=== PATIENT | female | born 1995 | race Caucasian/White ===

== ENCOUNTER 2019-11-11 04:34 | Emergency (ER) | payer BC ==
[2019-11-11] MEDS ORDERED: Acetaminophen 500 MG Tab PO ONE (05:15)
[2019-11-11] MEDS ORDERED: Prochlorperazine 10 MG/2 ML SDV IM ONE (05:16)
[2019-11-11] MEDS ORDERED: Ibuprofen 400 MG Tab PO ONE (05:16)
--- NOTE | 2019-11-11 05:28 | EDM.PDOC ---
ED HPI GENERAL MEDICAL PROBLEM - General Chief Complaint: Headache Stated Complaint: HEADACHE, FEVER AND VOMITTING Time Seen by Provider: 11/11/19 04:35 Source of Information: Reports: Patient History Limitations: Reports: No Limitations - History of Present Illness INITIAL COMMENTS - FREE TEXT/NARRATIVE: This patient is a very pleasant 24-year-old female with a past medical history of asthma presented to the emergency department the headache. She reports a 2 to 3-hour history of a right-sided headache in the retro-orbital region along with photophobia and phonophobia. Described as "pulsing" and constant, nonradiating. No prior history of a headache of this character and intensity. She denies any fever, neck stiffness, head trauma, visual disturbance, facial numbness or weakness, extremity numbness or weakness, gait instability, or anticoagulant or antiplatelet medication usage. No self treatment prior to arrival. Right Headache Pain Score (Numeric/FACES): 7 - Related Data Allergies Allergy/AdvReac Type Severity Reaction Status Date / Time amoxicillin Allergy Rash Verified 11/11/19 04:50 cefdinir [From Omnicef] Allergy Rash Verified 11/11/19 04:50 sulfamethazine Allergy vomit Verified 11/11/19 04:51 Home Meds: Home Meds Albuterol Sulfate [Albuterol Sulfate Hfa] 2 mg IH ASDIRECTED 11/11/19 [History] Ondansetron [Zofran] 4 mg PO Q8H PRN #15 tab 11/11/19 [Rx] norgestimate-ethinyl estradioL [Tri-Sprintec Tablet] 1 mg PO 11/11/19 [History] Past Medical History HEENT History: Reports: None Cardiovascular History: Reports: None Respiratory History: Reports: None, Asthma Gastrointestinal History: Reports: None 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 History: Reports: None 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 Musculoskeletal History: Reports: None Neurological History: Reports: None Psychiatric History: Reports: None Endocrine/Metabolic History: Reports: None Hematologic History: Reports: None Immunologic History: Reports: None Oncologic (Cancer) History: Reports: None Dermatologic History: Reports: None - Infectious Disease History Infectious Disease History: Reports: None - Past Surgical History Head Surgeries/Procedures: Reports: None HEENT Surgical History: Reports: None Cardiovascular Surgical History: Reports: None Respiratory Surgical History: Reports: None GI Surgical History: Reports: None Female Surgical History: Reports: None Neurological Surgical History: Reports: None Musculoskeletal Surgical History: Reports: None Social & Family History - Family History Family Medical History: Noncontributory - Tobacco Use Smoking Status *Q: Never Smoker Second Hand Smoke Exposure: No - Caffeine Use Caffeine Use: Reports: None - Recreational Drug Use Recreational Drug Use: No ED ROS GENERAL - Review of Systems Review Of Systems: Comprehensive ROS is negative, except as noted in HPI. Constitutional: Denies: Fever HEENT: Denies: Eye Pain, Hearing Loss, Vision Change Respiratory: Denies: Shortness of Breath Cardiovascular: Denies: Chest Pain, Edema Endocrine: Reports: No Symptoms GI/Abdominal: Reports: Nausea, Vomiting. Denies: Abdominal Pain : Reports: No Symptoms Musculoskeletal: Denies: Neck Pain, Back Pain Skin: Reports: No Symptoms Neurological: Reports: Headache. Denies: Dizziness, Numbness, Paresthesia, Seizure, Syncope, Tingling, Trouble Speaking, Difficulty Walking, Weakness, Change in Speech, Gait Disturbance Psychiatric: Reports: No Symptoms Hematologic/Lymphatic: Reports: No Symptoms - Physical Exam Exam: See Below General Appearance: Alert, No Apparent Distress Ears: Normal External Exam Nose: Normal Inspection, Normal Mucosa. No: Nasal Drainage Throat/Mouth: Normal Inspection, Normal Oropharynx, Normal Voice Head Exam: Atraumatic, Normocephalic, Other (Negative temporal artery tenderness ) Neck: Normal Inspection, Supple, Non-Tender, Full Range of Motion. No: Limited Range of Motion Respiratory/Chest: No Respiratory Distress, No Accessory Muscle Use Cardiovascular: Normal Peripheral Pulses, No Edema GI/Abdominal: Soft, Non-Tender, No Distention Neuro Exam (Abbreviated): Alert, Oriented, CN II-XII Intact, Normal Cognition, Normal Gait, No Motor/Sensory Deficits, Other (Awake, alert, and oriented x3. Cranial nerves II through XII intact. No facial droop or dysarthria. No temporal artery tenderness. Supple neck with normal range of motion. No pronator drift. Normal atsqee-zlzs-gukfka and ebfx-oc-vnpt. No dysdiadochokinesia. 5/5 strength in all extremities. Sensation intact to light touch x4. Negative Romberg. Normal gait. Normal visual fernandez, no field cuts. Able to sit, stand, and ambulate without assistance.) Extremities: Normal Inspection Psychiatric: Normal Affect, Normal Mood Skin Exam: Warm, Dry Course - Vital Signs Text/Narrative:: 23-year-old female presenting with a headache. On arrival she appears hemodynamically stable, afebrile, looks nontoxic. Diagnosis included but was not limited to migraine, tension headache, benign headache, meningoencephalitis , subarachnoid hemorrhage, intracranial hemorrhage, sub-dural hemorrhage, CVA, TIA, malignancy, sinusitis, etc. Given report of a new headache in an unusual pattern, we pursued CT imaging of the brain, which was unremarkable. Patient has no meningeal signs, neurologic examination is nonfocal and without abnormality. She is well-appearing and looks nontoxic. We administered acetaminophen along with ibuprofen and intramuscular prochlorperazine with good relief of her headache. Presentation seems to be consistent with a primary migraine. She is well-appearing and stable to discharge home with outpatient primary care follow-up. Recommended shkx-ocp-nunkhtz extra strength acetaminophen along with ibuprofen and prescribed a short course of Zofran. Strict ED return precautions were provided and the patient was discharged in good condition with all questions answered prior to departure. Last Recorded V/S: Last Vital Signs Temp 36.1 C 11/11/19 05:58 Pulse 87 11/11/19 05:58 Resp 14 11/11/19 05:58 BP 111/67 11/11/19 05:58 Pulse Ox 100 11/11/19 05:58 - Orders/Labs/Meds Meds: Medications Discontinued Medications Generic Name Dose Route Start Last Admin Trade Name Kleverq PRN Reason Stop Dose Admin Acetaminophen 1,000 mg 11/11/19 05:15 11/11/19 05:53 Tylenol Extra Strength PO 11/11/19 05:16 1,000 mg ONETIME ONE Administration Ibuprofen 400 mg 11/11/19 05:16 11/11/19 05:53 Motrin PO 11/11/19 05:17 400 mg ONETIME ONE Administration Prochlorperazine Edisylate 5 mg 11/11/19 05:16 11/11/19 05:53 Compazine IM 11/11/19 05:17 5 mg ONETIME ONE Administration - Re-Assessments/Exams Free Text/Narrative Re-Assessment/Exam: 11/11/19 06:[address] negative. Pain significantly improved. Patient is well-appearing, looks nontoxic, resting comfortably. Departure - Departure Time of Disposition: 06:22 Disposition: Home, Self-Care 01 Condition: Good Clinical Impression: Migraine - Discharge Information *PRESCRIPTION DRUG MONITORING PROGRAM REVIEWED*: Not Applicable *COPY OF PRESCRIPTION DRUG MONITORING REPORT IN PATIENT BATSHEVA: No Instructions: Migraine Headache, [id number] Referrals: Hortensia Castillo NP [Primary Care Provider] - 1 Week Forms: ED Department Discharge Additional Instructions: You can take [id number] acetaminophen or ibuprofen as directed for your headache. I recommend following up with your primary medical clinic in the next 1 to 2 weeks. Return to the emergency department immediately if your symptoms worsen or if you have any other concerns. The following information is given to patients seen in the emergency department who are being discharged to home. This information is to outline your options for follow-up care. We provide all patients seen in our emergency department with a follow-up referral. The need for follow-up, as well as the timing and circumstances, are variable depending upon the specifics of your emergency department visit. If you don't have a primary care physician on staff, we will provide you with a referral. We always advise you to contact your personal physician following an emergency department visit to inform them of the circumstance of the visit and for follow-up with them and/or the need for any referrals to a consulting specialist. The emergency department will also refer you to a specialist when appropriate. This referral assures that you have the opportunity for follow-up care with a specialist. All of these measure are taken in an effort to provide you with optimal care, which includes your follow-up. Under all circumstances we always encourage you to contact your private physician who remains a resource for coordinating your care. When calling for follow-up care, please make the office aware that this follow-up is from your recent emergency room visit. If for any reason you are refused follow-up, please contact the [facility] Emergency Department at and asked to speak to the emergency department charge nurse. Sepsis Event Note - Evaluation Sepsis Screening Result: No Definite Risk - Focused Exam Vital Signs: Vital Signs Temp Pulse Resp BP Pulse Ox 11/11/19 05:58 36.1 C 87 14 111/67 100 11/11/19 04:49 36.5 C 90 18 123/64 100 Date Exam was Performed: 11/11/19 Time Exam was Performed: 06:18
--- NOTE | 2019-11-11 06:16 | CT ---
INDICATION: Headache, dizziness and nausea and vomiting COMPARISON: November 10, 2012 TECHNIQUE: CT examination of the head was performed as axial sections without intravenous contrast. Images were obtained from the vertex of the skull through the skull base. Please note that all CT scans at this facility use dose modulation, iterative reconstruction, and/or weight-based dosing when appropriate to reduce radiation dose to as low as reasonably achievable. FINDINGS: The brain shows no sign of mass lesion, mass effect, hemorrhage, or edema. The ventricles and sulci are normal in appearance for the patient`s age. The visualized portions of the orbits are normal in appearance. The osseous structures are normal in their appearance with no sign of abnormality in the skull base or calvarium. IMPRESSION: Normal unenhanced head CT. Please note that all CT scans at this facility use dose modulation, iterative reconstruction, and/or weight-based dosing when appropriate to reduce radiation dose to as low as reasonably achievable. Dictated by Gage Pena MD @ Nov 11 2019 6:13AM Signed by Dr. Gage Pena @ Nov 11 2019 6:15AM
[2019-11-11 06:38] VITALS: BP 102/63; PULSE 85
== END 2019-11-11 06:35 | disposition home or self-care (01) ==
LOC: MW.ED 04:34
DX: G43.909 Migraine, unspecified, not intractable, without status migrainosus (principal); J45.909 Unspecified asthma, uncomplicated; Z88.1 Allergy status to other antibiotic agents; Z88.2 Allergy status to sulfonamides
CPT/HCPCS: 70450; 96372; 99284; A9270; J0780; 99283

== ENCOUNTER 2020-07-09 07:24 | Emergency (ER) | payer BC ==
--- NOTE | 2020-07-09 07:34 | EDM.PDOC ---
ED HPI GENERAL MEDICAL PROBLEM - General Stated Complaint: SHORTNESS OF BREATH AND CHEST PAIN Time Seen by Provider: 07/09/20 07:27 Source of Information: Reports: Patient History Limitations: Reports: No Limitations - History of Present Illness INITIAL COMMENTS - FREE TEXT/NARRATIVE: 24-year-old female with history of anxiety, PTSD, asthma presents with chest pain and shortness of breath. Symptoms started at 630 this morning, described as midsternal chest tightness sensation, exacerbated with taking a deep breath, associated with cough and shortness of breath and congestion. She denies fever, chills, nausea, vomiting, body aches and generalized malaise. She is on control. ROS: A 10-point review of systems, other than pertinent positives and negatives as stated per HPI, is otherwise negative Past medical history: No additional pertinent history Past Surgical history: No additional pertinent history Social history: No additional pertinent history Family history: No additional pertinent history PHYSICAL EXAM General: AOx4, GCS = 15, No distress HEENT: dry mucous membrane Neck: supple, no meningismus, no Kernig or Brudzinski Cardiac: S1S2 tachycardia Respiratory: CTAB, no crackles or rales, no wheezing Abdomen: Soft, nontender, no rebound or guarding, nondistended, no pulsatile mass. Back: nontender Musculoskeletal: NVI distally, no deformity Neuro: No focal deficits chest Pain Score (Numeric/FACES): 8 - Related Data Allergies Allergy/AdvReac Type Severity Reaction Status Date / Time amoxicillin Allergy Rash Verified 07/09/20 07:37 cefdinir [From Omnicef] Allergy Rash Verified 07/09/20 07:37 sulfamethazine Allergy vomit Verified 07/09/20 07:37 Home Meds: Home Meds Albuterol Sulfate [Albuterol Sulfate Hfa] 2 mg IH ASDIRECTED 11/11/19 [History] Ondansetron [Zofran] 4 mg PO Q8H PRN #15 tab 11/11/19 [Rx] norgestimate-ethinyl estradioL [Tri-Sprintec Tablet] 1 mg PO 11/11/19 [History] Sertraline HCl [Zoloft] 50 mg PO DAILY 07/09/20 [History] hydrOXYzine pamoate [Hydroxyzine Pamoate] 25 mg PO BID PRN 07/09/20 [History] Past Medical History HEENT History: Reports: None Cardiovascular History: Reports: None Respiratory History: Reports: None, Asthma Gastrointestinal History: Reports: None 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 History: 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 Musculoskeletal History: Reports: None Neurological History: Reports: None Psychiatric History: Reports: None Endocrine/Metabolic History: Reports: None Hematologic History: Reports: None Immunologic History: Reports: None Oncologic (Cancer) History: Reports: None Dermatologic History: Reports: None - Infectious Disease History Infectious Disease History: Reports: None - Past Surgical History Head Surgeries/Procedures: Reports: None HEENT Surgical History: Reports: None Cardiovascular Surgical History: Reports: None Respiratory Surgical History: Reports: None GI Surgical History: Reports: None Female Surgical History: Reports: None Neurological Surgical History: Reports: None Musculoskeletal Surgical History: Reports: None Social & Family History - Family History Family Medical History: No Pertinent Family History - Caffeine Use Caffeine Use: Reports: None ED ROS GENERAL - Review of Systems Review Of Systems: See Below (see dictation) ED EXAM, GENERAL - Physical Exam Exam: See Below (see dictation) #1 Interpretation EKG Interpretation Comments: 116 bpm, NSR, normal QRS interval, no STEMI. EKG and rhythm strip interpreted by me at 0743 Course - Vital Signs Last Recorded V/S: Last Vital Signs Temp 97.8 F 07/09/20 07:37 Pulse 106 H 07/09/20 07:37 Resp BP 137/71 07/09/20 07:37 Pulse Ox 98 07/09/20 07:37 - Orders/Labs/Meds Orders: Active Orders 24 hr Category Date Time Status Cardiac Monitoring [RC] . DIRECTED Care 07/09/20 07:53 Active EKG 12 Lead [EKG Documentation Completion] [RC] STAT Care 07/09/20 07:28 Active Pulse Oximetry [RC] ASDIRECTED Care 07/09/20 07:53 Active CORONAVIRUS COVID-19 CARLOS [MOLEC] Stat Lab 07/09/20 08:23 Received Sodium Chloride 0.9% [Saline Flush] Med 07/09/20 07:53 Active 10 ml FLUSH ASDIRECTED PRN Sodium Chloride 0.9% [Saline Flush] Med 07/09/20 07:53 Active 2.5 ml FLUSH ASDIRECTED PRN Saline Lock Insert [OM.PC] Stat Oth 07/09/20 07:53 Ordered Medication Orders Sodium Chloride (Saline Flush) 10 ml FLUSH ASDIRECTED PRN PRN Reason: Keep Vein Open Last Admin: 07/09/20 08:20 Dose: 10 ml Documented by: KIZZY Sodium Chloride (Saline Flush) 2.5 ml FLUSH ASDIRECTED PRN PRN Reason: Keep Vein Open Last Admin: 07/09/20 08:26 Dose: 2.5 ml Documented by: KIZZY Labs: Laboratory Tests 07/09/20 07/09/20 07/09/20 Range/Units 08:18 08:18 08:18 WBC 7.25 (4.0-11.0) K/uL RBC 4.95 (4.30-5.90) M/uL Hgb 14.5 (12.0-16.0) g/dL Hct 43.8 (36.0-46.0) % MCV 88.5 (80.0-98.0) fL MCH 29.3 (27.0-32.0) pg MCHC 33.1 (31.0-37.0) g/dL RDW Std Deviation 39.7 (28.0-62.0) fl RDW Coeff of Fatmata 12 (11.0-15.0) % Plt Count 236 (150-400) K/uL MPV 10.40 (7.40-12.00) fL Neut % (Auto) 58.8 (48.0-80.0) % Lymph % (Auto) 31.3 (16.0-40.0) % Baca % (Auto) 6.5 (0.0-15.0) % Eos % (Auto) 3.0 (0.0-7.0) % Baso % (Auto) 0.4 (0.0-1.5) % Neut # (Auto) 4.3 (1.4-5.7) K/uL Lymph # (Auto) 2.3 (0.6-2.4) K/uL Baca # (Auto) 0.5 (0.0-0.8) K/uL Eos # (Auto) 0.2 (0.0-0.7) K/uL Baso # (Auto) 0.0 (0.0-0.1) K/uL Nucleated RBC % 0.0 /100WBC Nucleated RBCs # 0 K/uL D-Dimer, Quantitative 0.30 (0.0-0.50) mg/L FEU Sodium 140 (136-145) mmol/L Potassium 3.6 (3.5-5.1) mmol/L Chloride 105 (98-107) mmol/L Carbon Dioxide 25.0 (21.0-32.0) mmol/L BUN 9 (7.0-18.0) mg/dL Creatinine 0.9 (0.6-1.0) mg/dL Est Cr Clr Drug Dosing 76.89 mL/min Estimated GFR (MDRD) > 60.0 ml/min Glucose 116 H (74-106) mg/dL Calcium 9.4 (8.5-10.1) mg/dL Total Bilirubin 0.2 (0.2-1.0) mg/dL AST 11 L (15-37) IU/L ALT 21 (14-63) IU/L Alkaline Phosphatase 88 (46-116) U/L Troponin I < 0.050 (0.000-0.056) ng/mL Total Protein 7.9 (6.4-8.2) g/dL Albumin 3.9 (3.4-5.0) g/dL Globulin 4.0 (2.6-4.0) g/dL Albumin/Globulin Ratio 1.0 (0.9-1.6) Meds: Medications Generic Name Dose Route Start Last Admin Trade Name Freq PRN Reason Stop Dose Admin Sodium Chloride 10 ml 07/09/20 07:53 07/09/20 08:20 Saline Flush FLUSH 10 ml ASDIRECTED PRN Administration Keep Vein Open Sodium Chloride 2.5 ml 07/09/20 07:53 07/09/20 08:26 Saline Flush FLUSH 2.5 ml ASDIRECTED PRN Administration Keep Vein Open Discontinued Medications Generic Name Dose Route Start Last Admin Trade Name Freq PRN Reason Stop Dose Admin Lactated Ringer's 1,000 mls @ 999 mls/hr 07/09/20 07:53 07/09/20 08:19 Ringers, Lactated IV 07/09/20 08:53 999 mls/hr .BOLUS ONE Administration Lorazepam 1 mg 07/09/20 08:57 Ativan PO 07/09/20 08:58 ONETIME ONE - Re-Assessments/Exams Free Text/Narrative Re-Assessment/Exam: 07/09/20 07:57 Order 1 L IV fluids and Ativan 1mg IV 07/09/20 09:52 After PO ativan, she feels better and is currently stable for discharge. I performed a repeat exam and did not appreciate new abnormal findings. Patient exhibits normal vital signs and has a normal gait on road test. I advised the patient to return to the ER for reevaluation if symptoms worsened, including fever, worsening pain, or any other worrisome symptoms. I instructed the patient to follow up with their PCP within 2-3 days. MEDICAL DECISION MAKING: I reviewed the patients past medical records, lab and radiographic findings. I discussed the case with the patient. My differential includes but is not limited to: anxiety, ACS, pneumonia, COVID, PE, pneumothorax, chest wall pain, pulmonary edema/CHF, aortic dissection, pericarditis, intra-abdominal process. Her clinical history is consistent with panic attack, she felt like her chest was tight. She was a little tremulous on exam, symptoms improved with p.o. Ativan, consistent with anxiety. She was tested negative for Covid. Given the EKG and clinical history, I do not suspect pericarditis. There is no evidence of pneumothorax or infiltrate on CXR. Aortic dissection was considered, however the presenting symptoms were uncharacteristic of aortic dissection. Chest X-ray shows no evidence of mediastinal widening and there are strong, equal and symmetric pulses. Given the current presentation, I do not suspect aortic dissection. The patients history, chest X-ray, and exam do not suggest pulmonary edema/congestive heart failure. Pulmonary embolism was considered but felt unlikely witha negative dimer. Intra-abdominal pathology felt unlikely given benign/non tender abdominal exam. Acute coronary syndrome was considered but there are negative troponin, no acute ischemic EKG changes, and the patient has a low HEART score. Based on this, I feel that there is low risk for short-term major adverse cardiac event. Departure - Departure Time of Disposition: 09:56 Disposition: Home, Self-Care 01 Condition: Good Clinical Impression: Chest discomfort, Anxiety - Discharge Information Instructions: Nonspecific Chest Pain, Adult, Managing Anxiety, Adult Referrals: Hortensia Castillo NP [Primary Care Provider] - 3 Days Forms: ED Department Discharge Additional Instructions: The need for follow-up, as well as the timing and circumstances, are variable depending upon the specifics of your emergency department visit. If you don't have a primary care physician on staff, we will provide you with a referral. We always advise you to contact your personal physician following an emergency department visit to inform them of the circumstance of the visit and for follow-up with them and/or the need for any referrals to a consulting specialist. The emergency department will also refer you to a specialist when appropriate. This referral assures that you have the opportunity for follow-up care with a specialist. All of these measure are taken in an effort to provide you with optimal care, which includes your follow-up. Under all circumstances we always encourage you to contact your private physician who remains a resource for coordinating your care. When calling for follow-up care, please make the office aware that this follow-up is from your recent emergency room visit. If for any reason you are refused follow-up, please contact the [facility] Emergency Department at and asked to speak to the emergency department charge nurse. If you do not have a primary care doctor, please follow up with the clinics below within 3-5 days. [facility] - Primary Care [address] [place] [id number] [facility] [address] [place] [id number] Sepsis Event Note (ED) - Focused Exam Vital Signs: Vital Signs Temp Pulse BP Pulse Ox 07/09/20 07:37 97.8 F 106 H 137/71 98 - My Orders Last 24 Hours: My Active Orders 07/09/20 07:28 EKG 12 Lead [EKG Documentation Completion] [RC] STAT 07/09/20 07:53 Cardiac Monitoring [RC] . DIRECTED Pulse Oximetry [RC] ASDIRECTED Sodium Chloride 0.9% [Saline Flush] 10 ml FLUSH ASDIRECTED PRN Sodium Chloride 0.9% [Saline Flush] 2.5 ml FLUSH ASDIRECTED PRN Saline Lock Insert [OM.PC] Stat 07/09/20 08:23 CORONAVIRUS COVID-19 CARLOS [MOLEC] Stat - Assessment/Plan Last 24 Hours: My Active Orders 07/09/20 07:28 EKG 12 Lead [EKG Documentation Completion] [RC] STAT 07/09/20 07:53 Cardiac Monitoring [RC] . DIRECTED Pulse Oximetry [RC] ASDIRECTED Sodium Chloride 0.9% [Saline Flush] 10 ml FLUSH ASDIRECTED PRN Sodium Chloride 0.9% [Saline Flush] 2.5 ml FLUSH ASDIRECTED PRN Saline Lock Insert [OM.PC] Stat 07/09/20 08:23 CORONAVIRUS COVID-19 CARLOS [MOLEC] Stat
[2020-07-09] MEDS ORDERED: Sodium Chloride 0.9% 2.5 ML Syringe FLUSH PRN (07:53)
[2020-07-09] MEDS ORDERED: Sodium Chloride 0.9% 10 ML Syringe FLUSH PRN (07:53)
[2020-07-09] MEDS ORDERED: Lactated Ringers 1,000 ML IV ONE (07:53)
[2020-07-09 08:49] LABS: BLOOD UREA NITROGEN,BUN 9 mg/dL (7.0-18.0); CHLORIDE,CL 105 mmol/L (98-107); GLUCOSE RANDOM 116 mg/dL (74-106); POTASSIUM,K 3.6 mmol/L (3.5-5.1); SODIUM,NA 140 mmol/L (136-145)
[2020-07-09] MEDS ORDERED: LORazepam 1 MG Tab PO ONE (08:57)
--- NOTE | 2020-07-09 08:57 | CR ---
HISTORY: Chest pain. TECHNIQUE: One view of the chest. COMPARISON: No prior. FINDINGS: There is no focal lung infiltrate or pulmonary edema. No pneumothorax or pleural effusion. Cardiac size within normal limits. Mild scoliosis. IMPRESSION: 1. No acute lung infiltrate or pulmonary edema. 2. Mild scoliosis. Dictated by Nazario Minor MD @ 07/09/2020 8:55:18 AM Dictated by: Nazario Minor MD @ 07/09/2020 08:55:24 (Electronically Signed)
[2020-07-09 11:36] VITALS: BP 125/72; PULSE 75
== END 2020-07-09 09:38 | disposition home or self-care (01) ==
LOC: MW.ED 07:24
DX: F41.9 Anxiety disorder, unspecified (principal); J45.909 Unspecified asthma, uncomplicated; Z88.0 Allergy status to penicillin; Z88.1 Allergy status to other antibiotic agents; Z88.2 Allergy status to sulfonamides; Z79.899 Other long term (current) drug therapy; Z20.822 Contact with and (suspected) exposure to COVID-19
CPT/HCPCS: 36415; 71045; 80053; 84484; 85025; 85379; 87635; 93005; 99285; A9270; J7120; U0002

== ENCOUNTER 2020-07-09 19:54 | Emergency (ER) | payer BC ==
[2020-07-09] MEDS ORDERED: Albuterol HFA 18 Gm Inhaler INH ONE (20:47)
[2020-07-09] MEDS ORDERED: predniSONE 20 MG Tab PO ONE (20:47)
--- NOTE | 2020-07-09 20:52 | EDM.PDOC ---
ED HPI GENERAL MEDICAL PROBLEM - General Chief Complaint: Chest Pain Stated Complaint: DIFFICULTY BREATHING Time Seen by Provider: 07/09/20 20:09 - History of Present Illness INITIAL COMMENTS - FREE TEXT/NARRATIVE: History of present illness: [] She woke up at 630 this morning with chest pain and shortness of breath. She came to the emergency department. Her exam was unremarkable and she was anxious. My partner gave her anxiolytic medicine and felt like she improved. She said she is continued to be somewhat short of breath. Her boyfriend noted that when she was able to sleep today after the medicine her breathing seemed normal. Patient has no fever chills. She has a mild cough. She has pleuritic type chest pain in anterior center of her chest. Continues tonight. The patient is on control pills but does not smoke and has negative personal and family history of thromboembolic disease. The patient has had no recent immobilization Surgery or long trip. She has no significant history of premature coronary vessel disease in her history of her family. Review of systems: As per history of present illness and below otherwise all systems reviewed and negative. Past medical history: As per history of present illness and as reviewed below otherwise noncontributory. Surgical history: As per history of present illness and as reviewed below otherwise noncontributory. Social history: No reported history of drug or alcohol abuse. Family history: As per history of present illness and as reviewed below otherwise noncontributory. Physical exam: Constitutional - well developed, well-nourished and in no acute distress HEENT - normocephalic, no evidence of trauma - external nose and mouth normal - no mass in neck and no JVD - mucosae moist EYES - full EOM, PERRL, no icterus - no evidence of inflammation, injection, or drainage Respiratory - no respiratory distress, equal bilateral expansion, lungs coarse rhonchi and wheezes in the bases. Cardiovascular - Regular Rhythm with S1 and S2 appreciated and no murmur, gallop or rub. GI - abdomen soft without distension or organomegaly - normal bowel sounds - no guard or rebound Musculoskeletal no gross deformity of long bones or joints - no tenderness, swelling or edema Neurologic - Alert and oriented times four - CN II-XII grossly intact - motor sensory and coordination symmetrically normal Psychiatric - appropriate mood and affect with normal thought content Hematologic - No petechiae or purpura - mucosa appropriate color and sclera not pale - normal nail bed color and refill Integument - no rash or evidence of trauma - normal turgor Diagnostics: [] Therapeutics: [] Impression: [] Plan: [] Definitive disposition and diagnosis as appropriate pending reevaluation and review of above. middle chest Pain Score (Numeric/FACES): 7 - Related Data Allergies Allergy/AdvReac Type Severity Reaction Status Date / Time amoxicillin Allergy Rash Verified 07/09/20 07:37 cefdinir [From Omnicef] Allergy Rash Verified 07/09/20 07:37 sulfamethazine Allergy vomit Verified 07/09/20 07:37 Home Meds: Home Meds Albuterol Sulfate [Albuterol Sulfate Hfa] 2 mg IH ASDIRECTED 11/11/19 [History] Ondansetron [Zofran] 4 mg PO Q8H PRN #15 tab 11/11/19 [Rx] norgestimate-ethinyl estradioL [Tri-Sprintec Tablet] 1 mg PO 11/11/19 [History] Sertraline HCl [Zoloft] 50 mg PO DAILY 07/09/20 [History] hydrOXYzine pamoate [Hydroxyzine Pamoate] 25 mg PO BID PRN 07/09/20 [History] predniSONE [Prednisone] 40 mg PO DAILY #6 tablet 07/09/20 [Rx] Past Medical History HEENT History: Reports: None Cardiovascular History: Reports: None Respiratory History: Reports: Asthma Gastrointestinal History: Reports: None 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 History: Reports: None [employer] History: Reports: None Musculoskeletal History: Reports: None Neurological History: Reports: None Psychiatric History: Reports: None Endocrine/Metabolic History: Reports: None Hematologic History: Reports: None Immunologic History: Reports: None Oncologic (Cancer) History: Reports: None Dermatologic History: Reports: None - Infectious Disease History Infectious Disease History: Reports: None - Past Surgical History Head Surgeries/Procedures: Reports: None HEENT Surgical History: Reports: Tonsillectomy Cardiovascular Surgical History: Reports: None Respiratory Surgical History: Reports: None GI Surgical History: Reports: None Female Surgical History: Reports: None Neurological Surgical History: Reports: None Musculoskeletal Surgical History: Reports: None Social & Family History - Family History Family Medical History: No Pertinent Family History - Caffeine Use Caffeine Use: Reports: None - Recreational Drug Use Recreational Drug Use: No ED ROS GENERAL - Review of Systems Review Of Systems: Comprehensive ROS is negative, except as noted in HPI. ED EXAM, GENERAL - Physical Exam Exam: See Below Free Text/Narrative:: My physical exam is in the HPI #1 Interpretation EKG Interpretation Comments: EKG shows a rhythm with a heart rate 94 and an axis of 58. SD interval is 143 and QT is 486. There is a borderline prolonged QT interval with some ST and T abnormalities. 08/01/1941 this morning the T wave inversions in the precordium and V3,4,5 and 6 have reverted to more normal-appearing T waves. Impression this could represent vasospasm. Course - Vital Signs Text/Narrative:: Coughed and vomited once and was much better afterwards. I feel like she may have clear to mucous plug. Because EKG has been more normal now than it was this morning there is a possibility she has intermittent vasospasm. Troponin remains negative. Patient feels better and is discharged in satisfactory condition but will have her make 1 appointment with cardiology to look at the 2 EKGs. Last Recorded V/S: Last Vital Signs Temp 37.5 C 07/09/20 20:10 Pulse 92 07/09/20 21:33 Resp 16 07/09/20 21:33 BP 129/69 07/09/20 21:33 Pulse Ox 100 07/09/20 21:33 - Orders/Labs/Meds Orders: Active Orders 24 hr Category Date Time Status EKG 12 Lead [EKG Documentation Completion] [RC] STAT Care 07/09/20 20:01 Active RT Post Treatment Assessment [RC] Click to Edit Care 07/09/20 20:47 Active RT Post Treatment Assessment [RC] Click to Edit Care 07/09/20 21:04 Active RT Pre-Treatment Assessment [RC] Click to Edit Care 07/09/20 20:47 Active RT Pre-Treatment Assessment [RC] Click to Edit Care 07/09/20 21:04 Active Labs: Laboratory Tests 07/09/20 Range/Units 21:15 Troponin I < 0.050 (0.000-0.056) ng/mL Meds: Medications Discontinued Medications Generic Name Dose Route Start Last Admin Trade Name Freq PRN Reason Stop Dose Admin Albuterol 8 gm 07/09/20 20:47 07/09/20 21:05 Ventolin Hfa INH 07/09/20 20:48 Not Given STAT ONE Albuterol Confirm 07/09/20 20:59 07/09/20 21:04 Ventolin Hfa Administered 07/09/20 21:00 Not Given Dose 8 gm INH .STK-MED ONE Albuterol 8 gm 07/09/20 21:02 07/09/20 21:10 Ventolin Hfa INH 07/09/20 21:03 2 inhalation NOW STA Administration Prednisone 40 mg 07/09/20 20:47 07/09/20 21:10 Prednisone PO 07/09/20 20:48 40 mg ONETIME ONE Administration Departure - Departure Time of Disposition: 21:52 Disposition: Home, Self-Care 01 Condition: Good Clinical Impression: Acute bronchospasm - Discharge Information Prescriptions: predniSONE [Prednisone] 40 mg PO DAILY #6 tablet Instructions: Bronchospasm, Adult Referrals: Hortensia Castillo RAG ROOM SUPERVISOR [Primary Care Provider] - Forms: ED Department Discharge Additional Instructions: [facility] - cardiology [address] [place] [address] Her EKG is normal tonight and there was a little bit of T wave change since this morning you should probably have an appoint with cardiology and left in them review your history and look at the 2 EKGs to make sure they do not think any more testing is necessary. [facility] - Primary Care [address] [place] [id number] [address] [address] The following information is given to patients seen in the emergency department who are being discharged to home. This information is to outline your options for follow-up care. We provide all patients seen in our emergency department with a follow-up referral. The need for follow-up, as well as the timing and circumstances, are variable depending upon the specifics of your emergency department visit. If you don't have a primary care physician on staff, we will provide you with a referral. We always advise you to contact your personal physician following an emergency department visit to inform them of the circumstance of the visit and for follow-up with them and/or the need for any referrals to a consulting specialist. The emergency department will also refer you to a specialist when appropriate. This referral assures that you have the opportunity for follow-up care with a specialist. All of these measure are taken in an effort to provide you with optimal care, which includes your follow-up. Under all circumstances we always encourage you to contact your private physician who remains a resource for coordinating your care. When calling for follow-up care, please make the office aware that this follow-up is from your recent emergency room visit. If for any reason you are refused follow-up, please contact the [facility] Emergency Department at and asked to speak to the emergency department charge nurse. Sepsis Event Note (ED) - Evaluation Sepsis Screening Result: No Definite Risk - Focused Exam Vital Signs: Vital Signs Temp Pulse Resp BP Pulse Ox 07/09/20 21:33 92 16 129/69 100 07/09/20 20:10 37.5 C 93 20 125/77 98 - My Orders Last 24 Hours: My Active Orders 07/09/20 20:01 EKG 12 Lead [EKG Documentation Completion] [RC] STAT 07/09/20 20:47 RT Post Treatment Assessment [RC] Click to Edit RT Pre-Treatment Assessment [RC] Click to Edit 07/09/20 21:04 RT Post Treatment Assessment [RC] Click to Edit RT Pre-Treatment Assessment [RC] Click to Edit - Assessment/Plan Last 24 Hours: My Active Orders 07/09/20 20:01 EKG 12 Lead [EKG Documentation Completion] [RC] STAT 07/09/20 20:47 RT Post Treatment Assessment [RC] Click to Edit RT Pre-Treatment Assessment [RC] Click to Edit 07/09/20 21:04 RT Post Treatment Assessment [RC] Click to Edit RT Pre-Treatment Assessment [RC] Click to Edit
[2020-07-09] MEDS ORDERED: Albuterol 8 GM Inhaler INH ONE (20:59)
[2020-07-09] MEDS ORDERED: Albuterol HFA 18 Gm Inhaler INH STA (21:02)
[2020-07-09 21:36] VITALS: BP 129/69; PULSE 92
== END 2020-07-09 22:00 | disposition home or self-care (01) ==
LOC: MW.ED 19:54
DX: J98.01 Acute bronchospasm (principal); Z88.2 Allergy status to sulfonamides; Z88.0 Allergy status to penicillin; Z88.1 Allergy status to other antibiotic agents
CPT/HCPCS: 36415; 84484; 93005; 99285; A9270; J3535-GY

== ENCOUNTER 2020-09-14 05:25 | Emergency (ER) | payer BC ==
[2020-09-14] MEDS ORDERED: diphenhydrAMINE 50 MG/ML SDV IVPUSH ONE (05:55)
[2020-09-14] MEDS ORDERED: Ketorolac 15 MG/ML SDV IVPUSH STA (05:55)
[2020-09-14] MEDS ORDERED: Prochlorperazine 5 MG in Sodium Chloride 0.9% 50 ML IV ONE (05:55)
[2020-09-14] MEDS ORDERED: Sodium Chloride 0.9% 1,000 ML IV ONE (05:56)
[2020-09-14] MEDS ORDERED: Sodium Chloride 0.9% 2.5 ML Syringe FLUSH PRN (05:56)
[2020-09-14] MEDS ORDERED: Sodium Chloride 0.9% 10 ML Syringe FLUSH PRN (05:56)
[2020-09-14] MEDS ORDERED: Prochlorperazine 10 MG/2 ML SDV ONE (05:59)
[2020-09-14] MEDS ORDERED: Prochlorperazine 10 MG/2 ML SDV IVPUSH ONE (05:59)
--- NOTE | 2020-09-14 06:01 | EDM.PDOC ---
ED HPI GENERAL MEDICAL PROBLEM - General Chief Complaint: Headache Stated Complaint: MIGRAINE, LIGHT-HEADED, EARS RINGING Time Seen by Provider: 09/14/20 05:49 - History of Present Illness INITIAL COMMENTS - FREE TEXT/NARRATIVE: HISTORY AND PHYSICAL: History of present illness: This is a 25-year-old female with past medical history as well as a family history significant for migraine headaches in the past, who presents ER today complaining of a headache that started approximate 1 day ago. Patient denies any recent fevers, shakes, chills, diarrhea, dysuria, frequency, urgency, chest pain, shortness of breath. Patient does complain of nausea and vomiting associated with it. Patient reports had one episode of emesis today. Patient denies any nuchal rigidity or photophobia. Patient reports she does have occasional episodes of blurred vision with her headache. Patient denies any weakness to her upper or lower extremities. Patient denies any slurring her speech. Patient denies any recent head trauma or injury. Patient reports that today's headache is similar to headaches that she is had in the past. Patient reports that she has been prescribed butalbital in the past by her primary care physician for her migraine headaches. Review of systems: As per history of present illness and below otherwise all systems reviewed and negative. Past medical history: As per history of present illness and as reviewed below otherwise noncontributory. Surgical history: As per history of present illness and as reviewed below otherwise noncontributory. Social history: No reported history of drug or alcohol abuse. Family history: As per history of present illness and as reviewed below otherwise noncontributory. Physical exam: This patient was seen and evaluated during the 2019 SARS-CoV-2 novel coronavirus pandemic period. Community viral transmission is ongoing at time of this encounter and the emergency department is operating under pandemic response procedures. Constitutional: Patient is oriented to person, place, and time. Appears well- developed and well-nourished. No distress. HEENT: Moist mucous membranes Head: Normocephalic and atraumatic Eyes: Right eye exhibits no discharge. Left eye exhibits no discharge. No scleral icterus Neck: Normal range of motion. No tracheal deviation present. Neck supple, no nuchal rigidity, no photophobia, no Kernig's sign or Brudzinski sign, patient does not present with signs or symptoms of be consistent with meningitis. Neuro: A&Ox3. Cranial nerves II-XII grossly intact, 5/5 strength to bilateral upper and lower extremities, sensation intact to bilateral upper and lower extremities, no nystagmus, PERRLA, EOMI, normal speech, proprioception intact to bilateral lower extremities, normal finger to nose test, gait normal Cardiovascular: Normal rate and regular rhythm. Pulmonary: Effort normal, no respiratory distress. Abdominal: No distention Musculoskeletal: Normal range of motion Neurologic: Alert and oriented to person, place and time. Skin: [place], warm and dry. Psychiatric: Normal mood and affect. Behavior is normal. Judgment and thought content normal. Nursing note and vital signs have been reviewed Therapeutics: Compazine 5 mg IV Benadryl 50 mg IV Toradol 15 mg IV NSS x1 L Assessment and plan: This is a 25-year-old female who presents ER today complaining of a headache consistent with her prior migraine headaches. Patient does not appear to be toxic upon presentation of the ED but does appear to be uncomfortable. Patient sitting quietly in the room with the lights on with her boyfriend. In reviewing patient's records, patient appears of had a CT scan within the last year. CT scan of the time was normal. Patient's neurological exam is unremarkable in the ED. Patient will be given Compazine, Benadryl, Toradol and NSS and will be reevaluated. 6:41 AM: Patient resting comfortably in bed. Patient reports headache is resolved and feels much improved. Patient be discharged home. Reassessment at the time of disposition demonstrates that the patient is in no acute distress. The patient has remained stable throughout the entire ED visit and is without objective evidence for acute process requiring urgent intervention or hospitalization. The patient is stable for discharge, counseling is provided as documented above, discussed symptomatic treatment and specific conditions for return. I have spoken with the patient/caregiver and discussed todays findings, in addition to providing specific details for the plan of care. Questions are answered and there is agreement with the plan. Definitive disposition and diagnosis as appropriate pending reevaluation and review of above. headache Pain Score (Numeric/FACES): 7 - Related Data Allergies Allergy/AdvReac Type Severity Reaction Status Date / Time amoxicillin Allergy Rash Verified 09/14/20 05:41 cefdinir [From Omnicef] Allergy Rash Verified 09/14/20 05:41 sulfamethazine Allergy Rash Verified 09/14/20 05:41 tramadol Allergy Rash Verified 09/14/20 05:41 Home Meds: Home Meds Albuterol Sulfate [Albuterol Sulfate Hfa] 2 mg IH ASDIRECTED 11/11/19 [History] norgestimate-ethinyl estradioL [Tri-Sprintec Tablet] 1 mg PO DAILY 11/11/19 [History] Sertraline HCl [Zoloft] 50 mg PO DAILY 07/09/20 [History] hydrOXYzine pamoate [Hydroxyzine Pamoate] 25 mg PO BID PRN 07/09/20 [History] Butalb/Acetaminophen/Caffeine [Idzgvn-Gvgkomyj-Ajoe 50-325-40] 1 each PO Q6HR PRN 09/14/20 [History] Fluticasone Propionate [Flovent HFA] 1 puff INH ASDIRECTED PRN 09/14/20 [History] Past Medical History HEENT History: Reports: None Cardiovascular History: Reports: None Respiratory History: Reports: Asthma Gastrointestinal History: Reports: None 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 History: Reports: None [employer]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 Musculoskeletal History: Reports: Other (See Below) Other Musculoskeletal History: Scoliosis Neurological History: Reports: None Psychiatric History: Reports: Anxiety, Depression Endocrine/Metabolic History: Reports: None Insulin Pump Model and District Associate Judge: None Hematologic History: Reports: None Immunologic History: Reports: None Oncologic (Cancer) History: Reports: None Dermatologic History: Reports: None - Infectious Disease History Infectious Disease History: Reports: None - Past Surgical History Head Surgeries/Procedures: Reports: None HEENT Surgical History: Reports: Tonsillectomy Cardiovascular Surgical History: Reports: None Respiratory Surgical History: Reports: None GI Surgical History: Reports: None Female Surgical History: Reports: None Neurological Surgical History: Reports: None Musculoskeletal Surgical History: Reports: None Social & Family History - Family History Family Medical History: No Pertinent Family History - Caffeine Use Caffeine Use: Reports: None ED ROS GENERAL - Review of Systems Review Of Systems: See Below ED EXAM, GENERAL - Physical Exam Exam: See Below Course - Vital Signs Last Recorded V/S: Last Vital Signs Temp 97.2 F 09/14/20 05:40 Pulse 89 09/14/20 05:40 Resp 18 09/14/20 05:40 BP 100/57 L 09/14/20 05:40 Pulse Ox 97 09/14/20 05:40 - Orders/Labs/Meds Orders: Active Orders 24 hr Category Date Time Status Sodium Chloride 0.9% [Normal Saline] 1,000 ml Med 09/14/20 05:56 Active IV .Bolus Sodium Chloride 0.9% [Saline Flush] Med 09/14/20 05:56 Active 10 ml FLUSH ASDIRECTED PRN Sodium Chloride 0.9% [Saline Flush] Med 09/14/20 05:56 Active 2.5 ml FLUSH ASDIRECTED PRN Saline Lock Insert [OM.PC] Stat Oth 09/14/20 05:56 Ordered Medication Orders Sodium Chloride (Normal Saline) 1,000 mls @ 999 mls/hr IV .Bolus ONE Stop: 09/14/20 06:56 Last Admin: 09/14/20 06:02 Dose: 999 mls/hr Documented by: RAJINDER Sodium Chloride (Sodium Chloride 0.9% 10 Ml Syringe) 10 ml FLUSH ASDIRECTED PRN PRN Reason: Keep Vein Open Last Admin: 09/14/20 06:02 Dose: 10 ml Documented by: RAJINDER Sodium Chloride (Sodium Chloride 0.9% 2.5 Ml Syringe) 2.5 ml FLUSH ASDIRECTED PRN PRN Reason: Keep Vein Open Last Admin: 09/14/20 06:02 Dose: 2.5 ml Documented by: RAJINDER Meds: Medications Generic Name Dose Route Start Last Admin Trade Name Freq PRN Reason Stop Dose Admin Sodium Chloride 1,000 mls @ 999 mls/hr 09/14/20 05:56 09/14/20 06:02 Normal Saline IV 09/14/20 06:56 999 mls/hr .Bolus ONE Administration Sodium Chloride 10 ml 09/14/20 05:56 09/14/20 06:02 Sodium Chloride 0.9% 10 Ml Syringe FLUSH 10 ml ASDIRECTED PRN Administration Keep Vein Open Sodium Chloride 2.5 ml 09/14/20 05:56 09/14/20 06:02 Sodium Chloride 0.9% 2.5 Ml Syringe FLUSH 2.5 ml ASDIRECTED PRN Administration Keep Vein Open Discontinued Medications Generic Name Dose Route Start Last Admin Trade Name Freq PRN Reason Stop Dose Admin Diphenhydramine HCl 50 mg 09/14/20 05:55 09/14/20 06:03 Diphenhydramine 50 Mg/Ml Sdv IVPUSH 09/14/20 05:56 50 mg ONETIME ONE Administration Prochlorperazine Edisylate 5 51 mls @ 150 mls/hr 09/14/20 05:55 09/14/20 06:00 mg/ Sodium Chloride IV 09/14/20 06:15 Not Given ONETIME ONE Ketorolac Tromethamine 15 mg 09/14/20 05:55 09/14/20 06:03 Ketorolac 15 Mg/Ml Sdv IVPUSH 09/14/20 05:56 15 mg ONETIME STA Administration Prochlorperazine Edisylate 5 mg 09/14/20 05:59 09/14/20 06:03 Prochlorperazine 10 Mg/2 Ml Sdv IVPUSH 09/14/20 06:00 5 mg ONETIME ONE Administration Prochlorperazine Edisylate Confirm 09/14/20 05:59 09/14/20 06:04 Prochlorperazine 10 Mg/2 Ml Sdv Administered 09/14/20 06:00 Not Given Dose 10 mg .ROUTE .STK-MED ONE Departure - Departure Time of Disposition: 06:42 Disposition: Home, Self-Care 01 Condition: Good Clinical Impression: Migraine - Discharge Information Instructions: Migraine Headache, Xrla-[id number], General Headache Without Cause, Hxpe-py-[id number] Referrals: Hortensia Castillo LOAN PROCESSING SUPERVISOR [Primary Care Provider] - Forms: ED Department Discharge Additional Instructions: You were seen and evaluated in the ER today secondary to what appears to be a likely migraine headache. You have been treated with Compazine, Benadryl, Toradol in the ED. Please go home and get plenty of rest and drink plenty of liquids over the next 1 to 2 days. Please make an appointment to see your family doctor in the next 1 to 2 days for reevaluation. The following information is given to patients seen in the emergency department who are being discharged to home. This information is to outline your options for follow-up care. We provide all patients seen in our emergency department with a follow-up referral. The need for follow-up, as well as the timing and circumstances, are variable depending upon the specifics of your emergency department visit. If you don't have a primary care physician on staff, we will provide you with a referral. We always advise you to contact your personal physician following an emergency department visit to inform them of the circumstance of the visit and for follow-up with them and/or the need for any referrals to a consulting specialist. The emergency department will also refer you to a specialist when appropriate. This referral assures that you have the opportunity for follow-up care with a specialist. All of these measure are taken in an effort to provide you with optimal care, which includes your follow-up. Under all circumstances we always encourage you to contact your private physician who remains a resource for coordinating your care. When calling for follow-up care, please make the office aware that this follow-up is from your recent emergency room visit. If for any reason you are refused follow-up, please contact the [facility] Emergency Department at and asked to speak to the emergency department charge nurse. [facility] - Primary Care [address] [place] [id number] [facility] [address] [place] [id number] Sepsis Event Note (ED) - Evaluation Sepsis Screening Result: No Definite Risk - Focused Exam Vital Signs: Vital Signs Temp Pulse Resp BP Pulse Ox 09/14/20 05:40 97.2 F 89 18 100/57 L 97 - My Orders Last 24 Hours: My Active Orders 09/14/20 05:56 Sodium Chloride 0.9% [Normal Saline] 1,000 ml IV .Bolus Sodium Chloride 0.9% [Saline Flush] 10 ml FLUSH ASDIRECTED PRN Sodium Chloride 0.9% [Saline Flush] 2.5 ml FLUSH ASDIRECTED PRN Saline Lock Insert [OM.PC] Stat - Assessment/Plan Last 24 Hours: My Active Orders 09/14/20 05:56 Sodium Chloride 0.9% [Normal Saline] 1,000 ml IV .Bolus Sodium Chloride 0.9% [Saline Flush] 10 ml FLUSH ASDIRECTED PRN Sodium Chloride 0.9% [Saline Flush] 2.5 ml FLUSH ASDIRECTED PRN Saline Lock Insert [OM.PC] Stat
[2020-09-14 06:45] VITALS: BP 104/56; PULSE 60
== END 2020-09-14 06:48 | disposition home or self-care (01) ==
LOC: MW.ED 05:25
DX: G43.909 Migraine, unspecified, not intractable, without status migrainosus (principal); J45.909 Unspecified asthma, uncomplicated; Z88.0 Allergy status to penicillin; Z88.2 Allergy status to sulfonamides; Z88.8 Allergy status to other drugs, medicaments and biological substances; Z79.899 Other long term (current) drug therapy
CPT/HCPCS: 96374; 96375; 99283; J0780; J1200; J1885; J7030

== ENCOUNTER 2021-07-11 20:20 | Emergency (ER) | payer BC ==
[2021-07-11] MEDS ORDERED: Ketorolac 60 MG/2 ML SDV IM ONE (21:14)
[2021-07-11] MEDS ORDERED: Ondansetron 4 MG Tab.DIS PO ONE (21:14)
[2021-07-11] MEDS ORDERED: Ketorolac 30 MG/ML SDV ONE (21:17)
[2021-07-11] MEDS ORDERED: Ketorolac 30 MG/ML SDV IM ONE (21:23)
[2021-07-11] MEDS ORDERED: Orphenadrine 60 MG/2 ML Inj IM ONE (21:52)
[2021-07-11 22:15] VITALS: BP 98/62; PULSE 65
== END 2021-07-11 22:15 | disposition home or self-care (01) ==
LOC: MW.ED 20:20
DX: M54.50 Low back pain, unspecified (principal); Z88.0 Allergy status to penicillin; Z88.1 Allergy status to other antibiotic agents; Z88.5 Allergy status to narcotic agent
CPT/HCPCS: 96372; 99283; A9270; J1885; J2360

== ENCOUNTER 2022-09-16 16:46 | Observation (INO) | payer BC | END 2022-09-17 11:50 | disposition home or self-care (01) | LOC: MW.OBCHECK 16:46 → MW.OB 16:47 → MW.OBCHECK 22:05 | PROVIDERS: ADMIT Obstetrics & Gynecology; ATTEND Obstetrics & Gynecology | DX: O47.1 False labor at or after 37 completed weeks of gestation (principal); O99.513 Diseases of the respiratory system complicating pregnancy, third trimester; J45.909 Unspecified asthma, uncomplicated; O99.353 Diseases of the nervous system complicating pregnancy, third trimester; G43.909 Migraine, unspecified, not intractable, without status migrainosus; O99.343 Other mental disorders complicating pregnancy, third trimester; F41.9 Anxiety disorder, unspecified; F32.A Depression, unspecified; Z3A.37 37 weeks gestation of pregnancy; Z88.1 Allergy status to other antibiotic agents; Z88.2 Allergy status to sulfonamides; Z88.5 Allergy status to narcotic agent; Z79.899 Other long term (current) drug therapy | CPT/HCPCS: 59025; 76815; 84112; 87480; 87510; 87660; G0378 ==

== ENCOUNTER 2022-09-28 13:26 | Inpatient (IN) | payer BC ==
[2022-09-28] MEDS ORDERED: Sodium Chloride 0.9% 2.5 ML Syringe FLUSH PRN (14:25)
[2022-09-28] MEDS ORDERED: Water For Irrigation,Sterile 1,000 ML Container IRR PRN (14:25)
[2022-09-28] MEDS ORDERED: Sodium Chloride 0.9% 10 ML Syringe FLUSH PRN (14:25)
[2022-09-28] MEDS ORDERED: Tranexamic Acid 1,000 MG in Sodium Chloride 0.9% 100 ML IV PRN (14:25)
[2022-09-28] MEDS ORDERED: Methylergonovine 0.2 MG/1 ML Amp IM PRN (14:25)
[2022-09-28] MEDS ORDERED: Sodium Chloride 0.9% 20 ML SDV IV PRN (14:25)
[2022-09-28] MEDS ORDERED: Butorphanol 1 MG/ML SDV IVPUSH PRN (14:25)
[2022-09-28] MEDS ORDERED: Carboprost Tromethamine 250 MCG/1 ML Amp IM PRN (14:25)
[2022-09-28] MEDS ORDERED: Misoprostol 200 MCG Tab PO PRN (14:25)
[2022-09-28] MEDS ORDERED: Lidocaine 1% 50 ML MDV INJECT PRN (14:25)
[2022-09-28] MEDS ORDERED: Ondansetron 4 MG/2 ML SDV IVPUSH PRN (14:25)
[2022-09-28] MEDS ORDERED: Oxytocin/0.9 % Sodium Chloride 30 UNIT/500 ML BAG IV SCH ×2 (14:30→17:30)
[2022-09-28] MEDS: Lactated Ringers 1,000 ML IV SCH ×2 (17:37→20:58)
[2022-09-28] MEDS ORDERED: Phenylephrine HCl 0.5 MG/5 ML AMP IVPUSH PRN (18:10)
[2022-09-28] MEDS ORDERED: ePHEDrine 50 MG/ML SDV IVPUSH PRN ×2 (18:10)
[2022-09-28] MEDS ORDERED: Ropivacaine HCl/PF 400 MG in Premix Bag 1 BAG EPIDUR SCH (18:15)
[2022-09-28] MEDS ORDERED: Dexmedetomidine 200 MCG/2 ML SDV ONE (19:28)
[2022-09-29] MEDS ORDERED: Ibuprofen 400 MG Tab PO PRN (00:48)
[2022-09-29] MEDS ORDERED: Benzocaine/Menthol 20%-0.5% Spray 78 GM Cannister TOP PRN (00:48)
[2022-09-29] MEDS ORDERED: Docusate Sodium 100 MG Cap PO PRN (00:48)
[2022-09-29] MEDS ORDERED: oxyCODONE 5 MG Tab PO PRN (00:48)
[2022-09-29] MEDS ORDERED: Bisacodyl 10 MG Supp RECTAL PRN (00:48)
[2022-09-29] MEDS ORDERED: Lanolin 100% Cream 7 GM Tube TOP PRN (00:48)
[2022-09-29] MEDS ORDERED: Ibuprofen 800 MG Tab PO PRN (00:48)
[2022-09-29] MEDS ORDERED: Witch Hazel Medicated Pads 40/Jar TOP PRN (00:48)
[2022-09-29] MEDS ORDERED: Acetaminophen 500 MG Tab PO PRN (00:48)
[2022-09-29] MEDS: Acetaminophen 500 MG Tab PO PRN ×2 (03:03→23:29)
[2022-09-30 07:58] VITALS: BP 122/73; PULSE 83
== END 2022-09-30 14:23 | disposition home or self-care (01) | DRG 560 ==
LOC: MW.OBCHECK 13:26 → MW.OB 13:33 → MW.OBCHECK 23:34 → MW.OB 23:35 → OBSVTOIN 23:35 → MW.OB 09-29 04:02
PROVIDERS: ADMIT Obstetrics & Gynecology; ATTEND Obstetrics & Gynecology
PROC: 10E0XZZ Delivery of Products of Conception, External Approach (ICD-10-PCS; principal; 2022-09-28)
PROC: 0UQMXZZ Repair Vulva, External Approach (ICD-10-PCS; 2022-09-28)
PROC: 3E0R3BZ Introduction of Anesthetic Agent into Spinal Canal, Percutaneous Approach (ICD-10-PCS; 2022-09-28)
PROC: 00HU33Z Insertion of Infusion Device into Spinal Canal, Percutaneous Approach (ICD-10-PCS; 2022-09-28)
DX: O42.02 Full-term premature rupture of membranes, onset of labor within 24 hours of rupture (principal); O99.344 Other mental disorders complicating childbirth; F32.A Depression, unspecified; O71.82 Other specified trauma to perineum and vulva; O77.0 Labor and delivery complicated by meconium in amniotic fluid; Z37.0 Single live birth; Z3A.39 39 weeks gestation of pregnancy; Z88.2 Allergy status to sulfonamides; Z88.0 Allergy status to penicillin; Z88.8 Allergy status to other drugs, medicaments and biological substances
CPT/HCPCS: 36415; 51702; 80305-QW; 81003; 82803; 84112; 85014; 85018; 85027; 86592; 86850; 86900; 86901; A9270-GY; J2590; J3490; J7120